=== PATIENT | female | born 1990 | race Hispanic/Latino ===

== ENCOUNTER 2017-07-26 00:38 | Emergency (ER) | payer BC, OTHER ==
[2017-07-26 01:51] LABS: Absolute Lymphocytes (CBC) 2.2 K/uL (0.7-4.9); Absolute Monocytes 0.5 K/uL (0.1-1.3); Absolute Neutrophil 3.7 K/uL (1.8-8.0); Basophils % 0.6 % (0-1.3); Eosinophils % 1.8 % (0-4.4); Hematocrit 34.9 % (36.0-45.0); Lymphocytes % 33.7 % (15.3-44.8); MCH 27.7 pg (27.0-35.0); MCV 84.3 fL (80-100); MPV 8.6 fL (7.6-11.3); Monocytes % 7.7 % (3.3-12.3); RBC Red Blood Cell Count 4.14 M/uL (3.86-4.86)
[2017-07-26 02:04] LABS: Bicarbonate 28 mEq/L (21-31); Glucose Level 132 mg/dL (65-120); Potassium 3.3 mEq/L (3.6-5.0); Sodium Level 139 mEq/L (135-145)
[2017-07-26 02:05] LABS: BUN Blood Urea Nitrogen 11 mg/dL (6-20); Glomerular Filtration Rate > 90 mL/min (=/>90); Magnesium 1.9 mg/dL (1.8-2.5)
[2017-07-26 02:22] LABS: Urine Blood TRACE (NEG); Urine Glucose NEGATIVE (NEG); Urine Protein NEGATIVE (NEG); Urine pH 6.5 (5.0-7.0)
--- NOTE | 2017-07-26 02:29 | ER ---
Nurse's Notes [facility] Name: Sherlyn Baker Age: 27 yrs Sex: Female : 1990 Arrival Date: 07/26/2017 Time: 00:40 Bed 17 Private MD: Diagnosis: Palpitations Presentation: 07/26 00:47 Presenting complaint: Patient states: "racing heart rate" and headache. pt stated she ak1 has had this prior but always went to bed and the "racing went away". Transition of care: patient was not received from another setting of care. Onset of symptoms was July 26, 2017. Care prior to arrival: None. 00:47 Method Of Arrival: Ambulatory ak1 00:47 Acuity: AIDAN 3 ak1 Triage Assessment: 00:48 General: Appears in no apparent distress. Behavior is calm, cooperative. Neuro: Level ak1 of Consciousness is awake, alert, obeys commands, Oriented to person, place, time, situation, Jigger Operator are equal bilaterally Moves all extremities. Gait is steady, Speech is normal. 01:57 Headache History: Denies prior headaches. Pain: Denies pain. Pain currently is 0 out of rk2 10 on a pain scale. Pain began No pain Also complains of. Cardiovascular: Rhythm is sinus rhythm. Respiratory: Airway is patent Respiratory effort is even, unlabored, Respiratory pattern is regular, symmetrical. Derm: Skin is pink, warm \\T\\ dry. 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 - Social history:: Smoking status: Patient/guardian denies using tobacco. Screenin:30 Abuse screen: Denies threats or abuse. rk2 01:30 Nutritional screening: No deficits noted. Tuberculosis screening: No symptoms or risk rk2 factors identified. Fall Risk None identified. Assessment: 01:27 Reassessment: Xray completed \\T\\ bedside. rk2 Vital Signs: 00:46 BP 128 / 82; Pulse 82; Resp 18; Temp 98.2(O); Pulse Ox 100% on R/A; Weight 72.57 kg ak1 (R); Height 5 ft. (152.40 cm) (R); Pain 0/10; 02:30 BP 103 / 71; Pulse 84; Resp 16; Pulse Ox 100% on R/A; lp1 00:46 Body Mass Index 31.25 (72.57 kg, 152.40 cm) ak1 ED Course: 00:40 Patient arrived in ED. es 00:46 Arm band placed on Patient placed in an exam room, on a stretcher, on pulse oximetry, ak1 Patient notified of wait time. 00:48 Triage completed. ak1 01:01 Hermelindo Kuhn MD is Attending Physician. ps1 01:06 Anabel Butts, DELL is Primary Nurse. rk2 01:26 XRAY Chest (1 view) Sent. rk2 01:30 Patient has correct armband on for positive identification. Placed in gown. Bed in low rk2 position. Call light in reach. 01:30 Inserted saline lock: 20 gauge in right antecubital area, using aseptic technique. rk2 01:43 X-ray completed. Portable x-ray completed in exam room. Patient tolerated procedure kw well. 02:29 No provider procedures requiring assistance completed. lp1 02:37 IV discontinued, No redness/swelling at site. Pressure dressing applied. lp1 Administered Medications: No medications were administered Outcome: 02:28 Discharge ordered by . ps1 02:37 Discharged to home ambulatory. lp1 02:37 Condition: good 02:37 Discharge instructions given to patient, Instructed on discharge instructions, follow up and referral plans. Demonstrated understanding of instructions, follow-up care. 02:40 Patient left the ED. lp1 Signatures: Isabela Jackson Kimberlee kw Pena, Laura, RN RN lp1 Marsha He RN RN ak1 Hermelindo Kuhn MD MD ps1 Anabel Butts RN RN rk2
--- NOTE | 2017-07-26 02:29 | EDPHYS ---
Physician Documentation [facility] Name: Sherlyn Baker Age: 27 yrs Sex: Female : 1990 Arrival Date: 07/26/2017 Time: 00:40 Bed 17 Private MD: ED Physician Hermelindo Kuhn HPI: 07/26 01:09 This 27 yrs old Female presents to ER via Ambulatory with complaints of ps1 Headache, Numbness, Palpitations. 01:09 The patient complains of pain to the forehead. The patient describes the headache as ps1 throbbing. Onset: The symptoms/episode began/occurred 1 hour(s) ago. Associated signs and symptoms: Pertinent positives: tingling in face and around the lips and hands. looked at her apple watch and said that her HR was high. She started having tingling in face and arms. Currently normal BP and HR. . 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 - Social history:: Smoking status: Patient/guardian denies using tobacco. ROS: 01:09 Constitutional: Negative for fever, chills, and weight loss, Eyes: Negative for injury, ps1 pain, redness, and discharge, Neck: Negative for injury, pain, and swelling. 01:09 Respiratory: Negative for shortness of breath, cough, wheezing, and pleuritic chest pain, Abdomen/GI: Negative for abdominal pain, nausea, vomiting, diarrhea, and constipation, Back: Negative for injury and pain, MS/Extremity: Negative for injury and deformity, Skin: Negative for injury, rash, and discoloration. 01:09 Cardiovascular: Positive for palpitations. 01:09 Neuro: Positive for tingling. Exam: 01:09 Constitutional: This is a well developed, well nourished patient who is awake, alert, ps1 and in no acute distress. Head/Face: Normocephalic, atraumatic. Eyes: Pupils equal round and reactive to light, extra-ocular motions intact. Lids and lashes normal. Conjunctiva and sclera are non-icteric and not injected. ENT: Nares patent. No nasal discharge, no septal abnormalities noted. Tympanic membranes are normal and external auditory canals are clear. Oropharynx with no redness, swelling, or masses, exudates, or evidence of obstruction, uvula midline. Mucous membranes moist. Chest/axilla: Normal chest wall appearance and motion. Nontender with no deformity. No lesions are appreciated. Cardiovascular: Regular rate and rhythm. No gallops, murmurs, or rubs. Normal PMI, no JVD. No pulse deficits. Respiratory: Lungs have equal breath sounds bilaterally, clear to auscultation and percussion. No rales, rhonchi or wheezes noted. No increased work of breathing, no retractions or nasal flaring. Abdomen/GI: Soft, non-tender, with normal bowel sounds. No distension or tympany. No guarding or rebound. No evidence of tenderness throughout. Skin: Warm, dry with normal turgor. Normal color with no rashes, no lesions, and no evidence of cellulitis. MS/ Extremity: Pulses equal, no cyanosis. Neurovascular intact. Full, normal range of motion. Neuro: Awake and alert, GCS 15, oriented to person, place, time, and situation. Cranial nerves II-XII grossly intact. Sensory grossly intact. Vital Signs: 00:46 BP 128 / 82; Pulse 82; Resp 18; Temp 98.2(O); Pulse Ox 100% on R/A; Weight 72.57 kg ak1 (R); Height 5 ft. (152.40 cm) (R); Pain 0/10; 02:30 BP 103 / 71; Pulse 84; Resp 16; Pulse Ox 100% on R/A; lp1 00:46 Body Mass Index 31.25 (72.57 kg, 152.40 cm) ak1 MDM: 01:17 Patient medically screened. ps1 02:25 Data reviewed: vital signs, nurses notes, lab test result(s), EKG, radiologic studies. ps1 ED course: Labs and imaging reviewed c/w palpitations NOS. Stable for discharge and follow up with mortising machine operator of her choice for holter monitor. . 07/26 01:09 Order name: Basic Metabolic Panel ps1 07/26 01:09 Order name: CBC with Diff ps1 07/26 01:09 Order name: Magnesium ps1 07/26 01:09 Order name: Troponin (emerg Dept Use Only) ps1 07/26 01:51 Order name: Urine Dipstick--Ancillary (enter results) 2 07/26 01:51 Order name: Urine --Ancillary (enter results) 2 07/26 01:09 Order name: XRAY Chest (1 view) ps1 07/26 01:09 Order name: EKG; Complete Time: 01:16 ps1 07/26 01:57 Order name: CBC with Automated Diff; Complete Time: 02:11 EDMS 07/26 02:05 Order name: Basic Metabolic Panel; Complete Time: 02:11 EDMS 07/26 02:05 Order name: Magnesium; Complete Time: 02:11 EDMS 07/26 02:11 Order name: Troponin (Emerg Dept Use Only); Complete Time: 02:12 EDMS 07/26 02:23 Order name: Urine --Ancillary; Complete Time: 02:23 EDMS 07/26 02:23 Order name: Urine Dipstick-Ancillary; Complete Time: 02:23 EDMS 07/26 01:09 Order name: Cardiac monitoring; Complete Time: 01:49 ps1 07/26 01:09 Order name: EKG - Nurse/Tech; Complete Time: 01:49 [facility] 07/26 01:09 Order name: IV Saline Lock; Complete Time: 01:49 ps1 07/26 01:09 Order name: Labs collected and sent; Complete Time: 01:49 ps1 07/26 01:09 Order name: O2 Per Protocol; Complete Time: 01:49 ps1 07/26 01:09 Order name: O2 Sat Monitoring; Complete Time: 01:49 [facility] 07/26 01:09 Order name: Urine Dipstick-Ancillary (obtain specimen); Complete Time: 01:50 ps1 Administered Medications: No medications were administered Disposition: 07/26/17 02:28 Discharged to Home. Impression: Palpitations. - Condition is Stable. - Discharge Instructions: Palpitations. - Medication Reconciliation Form, Thank You Letter, Antibiotic Education, Prescription Opioid Use form. - Follow up: Private Physician; When: As needed; Reason: Recheck today's complaints, Continuance of care, Re-evaluation by your physician. Follow up: Emergency Department; When: As needed; Reason: Trouble breathing, Worsening of condition. - Problem is new. - Symptoms are resolved. Signatures: [facility] Elzbieta Gleason RN RN lp1 Marsha He RN RN ak1 Hermelindo Kuhn MD MD ps1
[2017-07-26 02:46] VITALS: TEMP 98.2; O2SAT 100
[2017-07-26 02:48] VITALS: BP 103/71
--- NOTE | 2017-07-26 07:39 | EKG ---
Test Date: 2017-07-26 Test Time: 01:46:32 Development Consultant: BENNIE MEASUREMENT RESULTS: Intervals: Rate: 66 MS: 162 QRSD: 90 QT: 398 QTc: 417 Delong: P: 21 MS: 162 QRS: 81 T: 53 INTERPRETIVE STATEMENTS: Normal sinus rhythm Normal ECG No previous ECG available for comparison Electronically Signed On 07-26-17 07:38:26 CDT by Arnie Landeros
--- NOTE | 2017-07-26 08:09 | RAD REPORT ---
EXAM DESCRIPTION: Sherry Single View07/26/2017 1:47 am CLINICAL HISTORY: Chest pain/palpitations COMPARISON: none FINDINGS: The lungs appear clear of acute infiltrate. The heart is normal size IMPRESSION: No acute abnormalities displayed
== END 2017-07-26 02:40 | disposition home or self-care (01) ==
LOC: ER 00:38
DX: R00.2 Palpitations (principal); Z88.0 Allergy status to penicillin
CPT/HCPCS: 36415; 71045; 80048; 81003; 81025; 83735; 84484; 85025; 93005; 99284